=== PATIENT | female | born 1980 | race African-American/Black ===

== ENCOUNTER 2017-06-16 09:16 | Emergency (ER) | payer SELFPAY ==
[~2017-06-16] VITALS: Ht 165.1 cm; Wt 131.0 kg
[~2017-06-16 09:16] MED LIST: CIPRO500 MG OR; ERY-TAB333 MG OR; FERR SULFATE325 MG PO; IBUPROFEN600 MG PO; PRE-NATAL PO
[2017-06-16 10:03] LABS: HEMATOCRIT 46.8 % (37.0-47.0); HEMOGLOBIN 15.9 g/dl (12.0-16.0); MEAN CELL VOLUME 88.8 fL CALC (80.0-100.0); MEAN CORPUSCULAR HGB 30.2 pG CALC (26.0-32.0); NEUT# 3.24 thou/uL (2.00-7.15); RED BLOOD COUNT 5.27 mill/uL (4.20-5.60); RED CELL DISTRI WIDTH 14.5 % (11.5-15.5)
[2017-06-16 10:16] VITALS: BP 90/61
[2017-06-16 10:19] LABS: ALBUMIN 4.8 g/dL (3.2-5.0); ALKALINE PHOSPHATASE 157 u/l (38-126); ANION GAP 20 (6-22 (CALC)); BILIRUBIN, TOTAL 0.6 mg/dL (0.0-1.4); BUN 7 mg/dL (7-17); BUN/CREATININE RATIO 8 (12-20 (CALC)); CARBON DIOXIDE 17 mmol/l (22-30); CHLORIDE 109 mmol/l (95-108); CREATININE 0.9 mg/dL (0.5-1.0); GFR > 60 ML/MIN (>=60 (CALC)); GFR FOR AFR.AMER. > 60 ML/MIN (>=60 (CALC)); GLUCOSE 157 mg/dL (65-105); POTASSIUM 3.3 mmol/l (3.5-5.1); SGOT/AST 32 u/l (14-36); SGPT/ALT 34 u/l (9-52); SODIUM 142 mmol/l (137-146); TOTAL PROTEIN 8.8 g/dL (6.3-8.2)
[2017-06-16 10:42] LABS: URINE BLOOD DIPSTICK MODERATE (NEGATIVE); URINE GLUCOSE - DIPSTICK 100 mg/dL (NEGATIVE); URINE KETONE 15 mg/dL (NEGATIVE); URINE LEUK ESTERASE NEGATIVE (NEGATIVE); URINE NITRITE - DIPSTICK NEGATIVE (Negative); URINE PH 6.5 (4.5-8.0); URINE PROTEIN - DIPSTICK >=300 mg/dL (NEG-TRACE); URINE SPECIFIC GRAVITY 1.025
[2017-06-16 10:47] LABS: URINE BILIRUBIN - DIPSTICK MODERATE (NEGATIVE); URINE CLARITY HAZY; URINE COLOR DK. YELLOW
[2017-06-16 10:49] LABS: COCAINE NEGATIVE (NEGATIVE); METHADONE NEGATIVE (NEGATIVE); TETRAHYDROCANNABIONOL POSITIVE (NEGATIVE); URINE EPITHELIAL CELLS MANY EPI/hpf (0-FEW); URINE RBC 25-50 RBC/hpf (0-5)
[2017-06-16 10:50] LABS: BARBITURATES NEGATIVE (NEGATIVE); OXCYCODONE NEGATIVE (NEGATIVE); TRICYLIC ANTIDEPRESSANTS NEGATIVE (NEGATIVE)
== END 2017-06-16 13:11 | DRG 885 ==
LOC: ED 09:16
PROVIDERS: Emergency Medicine
DX: F25.0 Schizoaffective disorder, bipolar type (principal); R45.851 Suicidal ideations

== ENCOUNTER 2021-03-04 10:47 | Emergency (ER) | payer SELFPAY | END 2021-03-04 10:59 | disposition left against medical advice (07) | DRG 101 | LOC: ED 10:47 | DX: R56.9 Unspecified convulsions (principal); E66.3 Overweight; F17.200 Nicotine dependence, unspecified, uncomplicated; Z91.19 Patient's noncompliance with other medical treatment and regimen ==

== ENCOUNTER 2021-04-27 15:26 | Emergency (ER) | payer SELFPAY ==
[~2021-04-27] VITALS: Ht 165.1 cm; Wt 100.9 kg
[2021-04-27] MEDS ORDERED: GENTAK0.32 OD (16:18)
[2021-04-27 16:21] VITALS: BP 128/63
== END 2021-04-27 16:24 | disposition home or self-care (01) | DRG 125 ==
LOC: ED 15:26
DX: H10.9 Unspecified conjunctivitis (principal); E66.3 Overweight; F17.210 Nicotine dependence, cigarettes, uncomplicated

== ENCOUNTER 2023-01-26 18:28 | Emergency (ER) | payer OTHER ==
[~2023-01-26] VITALS: Ht 165.1 cm; Wt 100.0 kg
[~2023-01-26 18:28] MED LIST changes: +GENTAK0.32 OD
[2023-01-26 19:25] LABS: BASO% 0.3 % (0-3); HEMATOCRIT 43.1 % (37.0-47.0); IMMATURE GRANULOCYTES 0.2 % (0.0-5.0); LYMPH% 27.3 % (15-41); MEAN CELL VOLUME 92.7 fL CALC (80.0-100.0); MEAN CORPUSCULAR HGB 29.2 pG CALC (26.0-32.0); MEAN CORPUSCULAR HGB CONC 31.6 g/dL CAL (32.0-36.0); MONO% 6.3 % (2-13); NEUT# 5.59 thou/uL (2.00-7.15); NEUT% 64.9 % (42-76); RED BLOOD COUNT 4.65 mill/uL (4.20-5.60); RED CELL DISTRI WIDTH 15.9 % (11.5-15.5)
[2023-01-26 19:26] LABS: HEMOGLOBIN 13.6 g/dl (12.0-16.0)
[2023-01-26 19:35] LABS: ALBUMIN 4.3 g/dL (3.2-5.0); ALKALINE PHOSPHATASE 136 u/l (38-126); ANION GAP 12 (6-22 (CALC)); BUN 6 mg/dL (7-17); BUN/CREATININE RATIO 7 (12-20 (CALC)); CARBON DIOXIDE 20 mmol/l (22-30); CHLORIDE 112 mmol/l (95-108); CREATININE 0.9 mg/dL (0.5-1.0); GFR FOR AFR.AMER. > 60 ML/MIN (>=60 (CALC)); GFR OTHER RACES > 60 ML/MIN (>=60 (CALC)); LIPASE 168 u/l (23-300); POTASSIUM 3.8 mmol/l (3.5-5.1); SGOT/AST 20 u/l (14-36); SODIUM 141 mmol/l (137-146); TOTAL PROTEIN 8.1 g/dL (6.3-8.2)
[2023-01-26 19:42] LABS: BILIRUBIN, TOTAL 0.2 mg/dL (0.02-1.3)
[2023-01-26] MEDS ORDERED: VOLTAREN75 MG PO (21:10)
[2023-01-26 21:23] VITALS: BP 125/81
== END 2023-01-26 21:33 | disposition home or self-care (01) | DRG 999 ==
LOC: ED 18:28
PROVIDERS: Family Medicine
DX: S16.1XXA Strain of muscle, fascia and tendon at neck level, initial encounter (principal); S06.9X9A Unspecified intracranial injury with loss of consciousness of unspecified duration, initial encounter; T14.8XXA Other injury of unspecified body region, initial encounter; M25.562 Pain in left knee; E66.01 Morbid (severe) obesity due to excess calories; F17.200 Nicotine dependence, unspecified, uncomplicated; V47.6XXA Car passenger injured in collision with fixed or stationary object in traffic accident, initial encounter
CPT/HCPCS: Q9967